=== PATIENT | female | born 1960 | race American Indian/Alaskan Native ===

== ENCOUNTER 2018-11-25 11:00 | Outpatient (CLI) | payer MEDICARE | END 2018-11-25 11:01 | disposition home or self-care (01) | LOC: SLR 11:00 | PROVIDERS: ATTEND Specialist | DX: G47.33 Obstructive sleep apnea (adult) (pediatric) (principal); R40.0 Somnolence; R06.83 Snoring | CPT/HCPCS: 95810 ==

== ENCOUNTER 2019-04-12 05:55 | Inpatient (IN) | payer MEDICARE ==
[2019-04-12] MEDS ORDERED: APRESOLINE IV PRN (06:24)
[2019-04-12] MEDS ORDERED: MYLICON PO PRN (06:24)
[2019-04-12] MEDS ORDERED: NORCO PO PRN (06:24)
[2019-04-12] MEDS ORDERED: REGLAN IV PRN (06:24)
[2019-04-12] MEDS ORDERED: TRANSDERM-SCOP TD SCH (07:00)
[2019-04-12] MEDS ORDERED: LEVAQUIN 500MG/100ML 500 MG/100 ML BAG IV NR (07:00)
[2019-04-12] MEDS ORDERED: LOVENOX SUB-Q NR (07:00)
[2019-04-12] MEDS ORDERED: FLAGYL 500 MG/100 ML 500 MG/100 ML BAG IV NR (07:00)
[2019-04-12] MEDS: LACTATED RINGERS 1,000 ML IV SCH ×2 (07:18→18:28)
--- NOTE | 2019-04-12 07:18 | Anesthesia Day of Surgery ---
Anesthesia Day of Surgery - Day of Surgery Patient Examined: Yes Patient H&P Reviewed: Yes Patient is NPO: Yes
[2019-04-12] MEDS ORDERED: XYLOCAINE 1% 20 mL ONE (07:20)
[2019-04-12] MEDS ORDERED: MARCAINE-EPI 0.5%-1:200,000 INFILTRATI ONE ×2 (07:20→08:23)
[2019-04-12] MEDS ORDERED: SUBLIMAZE IV PRN (07:23)
[2019-04-12] MEDS ORDERED: ZOFRAN IV PRN (07:23)
--- NOTE | 2019-04-12 07:23 | Anesthesia Consultation ---
Anesthesia Consult and Med Hx Date of service: 04/12/19 - Airway Anesthetic Teeth Evaluation: Chipped ROM Head & Neck: Adequate Mental/Hyoid Distance: Adequate Mallampati Class: Class II Intubation Access Assessment: Good - Pre-Operative Health Status ASA Pre-Surgery Classification: ASA3 Proposed Anesthetic Plan: General - Pulmonary Hx Smoking: Yes (SINCE AGE 14; QUIT AROUND 2004) Hx Asthma: Yes (RESCUE INHALER) Hx Sleep Apnea: Yes - Cardiovascular System Hx Hypertension: Yes (2010) - Central Nervous System Hx Back Pain: Yes (HERNIATED DISC, SCIATICA) Hx Psychiatric Problems: No - Gastrointestinal Hx Gastroesophageal Reflux Disease: Yes - Endocrine Hx Non-Insulin Dependent Diabetes: Yes Hx Thyroid Disease: Yes - Other Systems Hx Alcohol Use: Yes Hx Obesity: Yes
[2019-04-12] MEDS ORDERED: ZEMURON IV ONE (07:24)
[2019-04-12] MEDS ORDERED: PROAIR IH ONE (07:24)
[2019-04-12] MEDS ORDERED: SUBLIMAZE ONE (07:24)
[2019-04-12] MEDS ORDERED: XYLOCAINE MPF 2% ONE (07:24)
[2019-04-12] MEDS ORDERED: DIPRIVAN 10 MG/ML IV ONE (07:26)
[2019-04-12] MEDS ORDERED: NEURONTIN PO NR (08:00)
[2019-04-12] MEDS ORDERED: TYLENOL PO NR (08:00)
[2019-04-12 08:19] LABS: Bacteria,Urine 1+ /HPF (Negative); Bilirubin,Urine NEG (Negative); Blood,Urine NEG (Negative); Color,Urine Amber (Yellow); Mucus,Urine 3+ /HPF; Protein,Urine <15 mg/dL mg/dL (Negative); Urobilinogen,Urine < 2.0 mg/dL (<2.0)
[2019-04-12] MEDS ORDERED: XYLOCAINE 1% 20 mL INFILTRATI ONE (08:24)
[2019-04-12] MEDS ORDERED: NACL 0.9% IR ONE (08:24)
[2019-04-12] MEDS ORDERED: DILAUDID ONE (09:26)
[2019-04-12] MEDS ORDERED: ZOFRAN ONE (09:51)
[2019-04-12] MEDS ORDERED: ROBINUL ONE (09:51)
[2019-04-12] MEDS ORDERED: BLOXIVERZ ONE (09:51)
[2019-04-12] MEDS ORDERED: ARTIFICIAL TEARS OPHTH OINT ONE (10:41)
--- NOTE | 2019-04-12 11:06 | Post Anesthesia Evaluation ---
- Post Anesthesia Evaluation Patient Participated: Yes Airway Patent: Yes Stable Respiratory Function: Yes Nausea/Vomiting: No Temp > 96.8F: Yes Pain Manageable: Yes Adequeate Hydration: Yes Anesthesia Complications: Yes (R eyelid torn skin from paper tape. Slight on left. Also on abdomen. D/W pt) Block Receding Appropriately: Not Applicable Patient on Ventilator: No
[2019-04-12] MEDS: MORPHINE IV PRN (12:35)
[2019-04-12] MEDS: DILAUDID IV PRN ×2 (15:58→21:45)
[2019-04-12] MEDS: ZOFRAN IV PRN (18:28)
[2019-04-13] MEDS: DILAUDID IV PRN (00:18)
[2019-04-13 05:04] VITALS: BP 143/95
[2019-04-13] MEDS: LACTATED RINGERS 1,000 ML IV SCH (06:39)
[2019-04-13] MEDS: MORPHINE IV PRN (06:39)
--- NOTE | 2019-04-13 07:19 | Discharge Summary ---
Providers - Providers Date of Admission: 04/12/19 05:55 Date of discharge: 04/13/19 Attending physician: LISA GARCIA Primary care physician: DANA AYERS Hospitalization Reason for admission: postop Condition: Good Procedures: 04/12/19: Laparoscopic conversion sleeve to gastric bypass Hospital course: 58F admitted after her operation for routine postop care. She had no major issues, tolerated a CLD, ambulated, and was dc home POD1. Disposition: DC-01 TO HOME OR SELFCARE Core Measure Documentation - Palliative Care Palliative Care/ Comfort Measures: Not Applicable - Core Measures Any of the following diagnoses?: none - VTE Discharge Requirements Deep Vein Thrombosis/Pulmonary Embolism Present on Admission: No - Acute MO Discharge Requirements Aspirin at discharge: No Reason for no aspirin on DC: Surgical contraindication - Heart Failure Discharge Requirements NINA/ARB for LVSD if EF <40%: Not Applicable - Stroke Discharge Requirements Statin for LDL = or >70 mg/dl on DC: Not Applicable Exam - Physical Exam Narrative exam: Gen: AAO, NAD Heart: RRR Lungs: Clear Abd: MO, soft, NT, ND, bandages c/d/i - Constitutional Vitals: Temp Pulse Resp BP Pulse Ox 98.6 F 87 18 143/95 98 04/13/19 04:59 04/13/19 04:59 04/13/19 04:59 04/13/19 04:59 04/13/19 04:59 Plan Diet: clear liquids Wound: keep clean and dry Special Instructions: no heavy lifting Additional Instructions: Easton Garcia as scheduled Follow up with: DANA AYERS MD [Primary Care Provider] - 7 Days
[2019-04-13] MEDS ORDERED: LOVENOX SUB-Q SCH (10:00)
[2019-04-13] MEDS: ZOFRAN IV PRN (10:16)
== END 2019-04-13 12:05 | disposition home or self-care (01) | DRG 621 ==
LOC: 3A 05:55 → 3B-SURG 10:34
PROVIDERS: ADMIT Specialist; ATTEND Specialist
PROC: 0D164ZA Bypass Stomach to Jejunum, Percutaneous Endoscopic Approach (ICD-10-PCS; principal; 2019-04-12)
DX: E66.01 Morbid (severe) obesity due to excess calories (principal); E11.9 Type 2 diabetes mellitus without complications; E03.9 Hypothyroidism, unspecified; K21.9 Gastro-esophageal reflux disease without esophagitis; F32.9 Major depressive disorder, single episode, unspecified; J45.909 Unspecified asthma, uncomplicated; Z82.49 Family history of ischemic heart disease and other diseases of the circulatory system; Z87.891 Personal history of nicotine dependence; Z79.899 Other long term (current) drug therapy; Z79.84 Long term (current) use of oral hypoglycemic drugs; Z68.41 Body mass index [BMI] 40.0-44.9, adult
CPT/HCPCS: 81001; 82962; 94760; G0378; J0360; J1170; J1650; J1956; J2270; J2405; J2704; J2710; J2765; J3010; J7120